=== PATIENT | male | born 1945 | race Caucasian/White ===

== ENCOUNTER 2017-08-04 13:31 | Emergency (ER) | payer OTHER ==
[2017-08-04] MEDS: PERCOCET 5MG/325MG TAB PO (14:10)
== END 2017-08-04 15:30 | disposition home or self-care (01) ==
LOC: M ED 13:31
DX: R07.89 Other chest pain (principal); I10 Essential (primary) hypertension; E78.5 Hyperlipidemia, unspecified; Z82.49 Family history of ischemic heart disease and other diseases of the circulatory system; Z79.899 Other long term (current) drug therapy
CPT/HCPCS: 71101